=== PATIENT | male | born 1995 | race African-American/Black ===

== ENCOUNTER 2018-01-18 20:52 | Emergency (ER) | payer OTHER ==
--- NOTE | 2018-01-18 21:09 | PDOC ---
Rapid Medical Evaluation Time Seen by Provider: 01/18/18 21:07 Medical Evaluation: 01/18/18 21:08 I have performed a brief in-person evaluation of this patient. The patient presents with a chief complaint of: abdominal pain and [place] x3 days Pertinent physical exam findings: +BS. periumbilical tenderness. +guarding I have ordered the following: urine, labs The patient will proceed to the ED for further evaluation. Discharge Disposition - Diagnosis Abdominal pain - Referrals - Patient Instructions - Post Discharge Activity
[2018-01-18 21:24] VITALS: BMI 32.8
[2018-01-18] MEDS ORDERED: SODIUM CHLORIDE 1,000 ML IV STA (21:24)
[2018-01-18 21:49] LABS: BASO % 0.4 % (0-2.0); EOS % 0.1 % (0-4.5); HEMATOCRIT 44.2 % (35.4-49); HEMOGLOBIN 15.7 GM/dL (11.7-16.9); LYMPH % 24.1 % (8-40); MCH 31.5 pg (25.7-33.7); MCHC 35.5 g/dl (32.0-35.9); MEAN CELL VOLUME 88.8 fl (80-96); MEAN PLT VOLUME 12.9 fl (7.5-11.1); MONO % 7.9 % (3.8-10.2); NEUT % 67.5 % (42.8-82.8); PLATELET COUNT 158 K/MM3 (134-434); RBC 4.98 M/mm3 (4.00-5.60); RDW 13.9 % (11.9-15.9); WHITE BLOOD COUNT 13.5 K/mm3 (4.0-10.0)
--- NOTE | 2018-01-18 21:56 | PDOC ---
History of Present Illness - General Chief Complaint: Pain Stated Complaint: STOMACH PAIN Time Seen by Provider: 01/18/18 21:07 History Source: Patient - History of Present Illness Initial Comments: 01/18/18 21:48 22 year old male with periumbilical pain x 3 days today worse after eating lunch today pain got worse. denies fever/ chills, NVD, urinary symptoms or testicular pain or swelling 01/19/18 00:41 Past History - Past Medical History Allergies/Adverse Reactions: Allergies Allergy/AdvReac Type Severity Reaction Status Date / Time No Known Allergies Allergy Verified 01/18/18 21:24 Asthma: Yes COPD: No - Suicide/Smoking/Psychosocial Hx Smoking History: Never smoked Have you smoked in the past 12 months: No Information on smoking cessation initiated: No Hx Alcohol Use: No Drug/Substance Use Hx: No Substance Use Type: None Review of Systems - Review of Systems Able to Perform ROS?: Yes Is the patient limited [place] proficient: No Constitutional: No: Symptoms Reported, See HPI, Chills, Diaphoresis, Fever, Loss of Appetite, Malaise, Night Sweats, Weakness, Weight Stable, Unintentional Wgt. Loss, Unexplained wgt Loss, Other ABD/GI: Yes: Abdominal cramping. No: Symptoms Reported, See HPI, Abdominal Distended, Abd. Pain w/ defecation, Blood Streaked Bowels, Constipated, Diarrhea , Difficulty Swallowing, Nausea, Poor Appetite, Poor Fluid Intake, Rectal Bleeding, Vomiting, Indigestion, Tarry Stools, Other : No: Symptoms Reported, See HPI, Burning, Dysuria, Discharge, Frequency, Flank Pain, Hematuria, Incontinence, Pain, Urgency, Testicular Mass, Testicular Swelling, Lesions, Testicular Pain, Other *Physical Exam - Vital Signs Last Vital Signs Temp Pulse Resp BP Pulse Ox 99.4 F 86 19 127/74 100 01/18/18 21:22 01/18/18 21:22 01/18/18 21:22 01/18/18 21:22 01/18/18 21:22 - Physical Exam General Appearance: Yes: Appropriately Dressed Respiratory/Chest: positive: Lungs Clear, Normal Breath Sounds Cardiovascular: positive: Regular Rhythm, Regular Rate Gastrointestinal/Abdominal: positive: Normal Bowel Sounds, Tender (RLQ . + mcburneys), Soft Male Genitalia: positive: normal genitalia. negative: testicular tenderness, inguinal hernia Musculoskeletal: positive: Normal Inspection Extremity: positive: Normal Capillary Refill, Normal Inspection Integumentary: positive: Normal Color, Dry, Warm Neurologic: positive: Fully Oriented, Alert, Normal Mood/Affect ED Treatment Course - LABORATORY CBC & Chemistry Diagram: 01/18/18 21:27 01/18/18 21:39 Progress Note - Progress Note Progress Note: A: RLQ pain P: labs CTAP UA Medical Decision Making - Medical Decision Making 01/19/18 01:23 pain imporved. CTAP : negative normal appendix 01/19/18 06:48 UA negative, patient feels better. patient referred to see GI outpatient *DC/Admit/Observation/Transfer Diagnosis at time of Disposition: Abdominal pain Qualifiers: Abdominal location: right lower quadrant Qualified Code(s): R10.31 - Right lower quadrant pain - Discharge Dispostion Disposition: HOME - Referrals Referrals: ON STAFF,NOT [Primary Care Provider] - Kalin Ram MD [Staff Physician] - Call tomorrow - Patient Instructions Printed Discharge Instructions: DI for Acute Abdomen Additional Instructions: start a bland diet follow up with gasteroenterology Additional Instructions: * Please call your personal physician to report your Emergency Department visit and to report your progress, if any. * If there is no improvement in symptoms in 2 days call your physician. * Return to the Emergency Department for any worsening symptoms. - Post Discharge Activity Forms/Work/School Notes: Back to Work
[2018-01-18] MEDS ORDERED: SODIUM CHLORIDE 1,000 ML IV SCH (22:00)
[2018-01-18 22:17] LABS: ALBUMIN 4.1 g/dl (3.4-5.0); ALK PHOS 110 U/L (45-117); ANION GAP 10 MMOL/L (8-16); BILIRUBIN,TOTAL 0.6 mg/dL (0.2-1); BLOOD UREA NITROGEN 11 mg/dL (7-18); CALCIUM 8.6 mg/dL (8.5-10.1); CHLORIDE 105 mmol/L (98-107); CO2 26 mmol/L (21-32); CREATININE 1.2 mg/dL (0.55-1.3); GLUCOSE,RANDOM 85 mg/dL (74-106); LIPASE 101 U/L (73-393); POTASSIUM 3.5 mmol/L (3.5-5.1); SGOT/AST 13 U/L (15-37); SGPT/ALT 23 U/L (13-61); SODIUM 141 mmol/L (136-145); TOT PROT 7.8 g/dl (6.4-8.2)
--- NOTE | 2018-01-18 22:21 | PDOC ---
*Physical Exam - Vital Signs Last Vital Signs Temp Pulse Resp BP Pulse Ox 99.4 F 86 19 127/74 100 01/18/18 21:22 01/18/18 21:22 01/18/18 21:22 01/18/18 21:22 01/18/18 21:22 ED Treatment Course - LABORATORY CBC & Chemistry Diagram: 01/18/18 21:27 01/18/18 21:39 - ADDITIONAL ORDERS Additional order review: Laboratory Results 01/18/18 21:39 Sodium 141 Potassium 3.5 Chloride 105 Carbon Dioxide 26 Anion Gap 10 BUN 11 Creatinine 1.2 Creat Clearance w eGFR > 60 Random Glucose 85 Calcium 8.6 Total Bilirubin 0.6 AST 13 L ALT 23 Alkaline Phosphatase 110 Total Protein 7.8 Albumin 4.1 Lipase 101 01/18/18 21:27 RBC 4.98 MCV 88.8 MCHC 35.5 RDW 13.9 MPV 12.9 H Neutrophils % 67.5 Lymphocytes % 24.1 Monocytes % 7.9 Eosinophils % 0.1 Basophils % 0.4 Medical Decision Making - Medical Decision Making 01/18/18 22:18 22M pmh asthma here with epigastric abd pain worsening over the past 3 days. Pain has primarily been epigastric a/w nausea, no vomiting. States he is most concerned because his appetite is decreased which is extremely unusual for him. States that pain has generalized and is now more localized to the RLQ Agree with exam documented by CORPORATE AUDITOR Consider appy, gastritis, enteritis, henria inconsistent with exam, gu pathology F/u labs, IVF, analgesia ct ap 01/19/18 02:[address] Interval improvement of symptoms safe for dc home *DC/Admit/Observation/Transfer Diagnosis at time of Disposition: Abdominal pain Qualifiers: Abdominal location: right lower quadrant Qualified Code(s): R10.31 - Right lower quadrant pain - Discharge Dispostion Disposition: HOME - Referrals Referrals: ON STAFF,NOT [Primary Care Provider] - Kalin Ram MD [Staff Physician] - Call tomorrow - Patient Instructions Printed Discharge Instructions: DI for Acute Abdomen Additional Instructions: start a bland diet follow up with gasteroenterology Additional Instructions: * Please call your personal physician to report your Emergency Department visit and to report your progress, if any. * If there is no improvement in symptoms in 2 days call your physician. * Return to the Emergency Department for any worsening symptoms. - Post Discharge Activity Forms/Work/School Notes: Back to Work
[2018-01-19] MEDS ORDERED: KETOROLAC TROMETHAMINE 30 MG/1 ML VIAL IVPUSH ONE (01:23)
[2018-01-19] MEDS ORDERED: KETOROLAC TROMETHAMINE 30 MG/1 ML VIAL ONE (01:37)
[2018-01-19 02:30] LABS: URINE APPEARANCE CLEAR; URINE BILIRUBIN NEGATIVE (<2.0 mg/dL); URINE COLOR YELLOW; URINE GLUCOSE (UA) NEGATIVE (NEGATIVE); URINE KETONE NEGATIVE (NEGATIVE)
[2018-01-19 02:32] VITALS: BP 126/76; PULSE 82; TEMP 99
[2018-01-19 02:32] LABS: URINE LEUK ESTERASE NEGATIVE (NEGATIVE); URINE NITRITE NEGATIVE (NEGATIVE); URINE PROTEIN NEGATIVE (NEGATIVE); URINE UROBILINOGEN 4.0 E.U/dl mg/dL (0.2-1.0)
== END 2018-01-19 02:40 | disposition home or self-care (01) ==
LOC: JER 20:52
PROC: 3E0337Z Introduction of Electrolytic and Water Balance Substance into Peripheral Vein, Percutaneous Approach (ICD-10-PCS; principal; 2018-01-18)
PROC: 3E033NZ Introduction of Analgesics, Hypnotics, Sedatives into Peripheral Vein, Percutaneous Approach (ICD-10-PCS; 2018-01-18)
DX: R10.31 Right lower quadrant pain (principal)
CPT/HCPCS: 36415; 74177-TC; 80053; 81003; 83690; 85025; 87086; 99285-25; J7030